=== PATIENT | male | born 1985 | race African-American/Black ===

== ENCOUNTER 2016-12-02 21:48 | Emergency (ER) | payer SELFPAY ==
[~2016-12-02] VITALS: Ht 188 cm; Wt 88.0 kg
[~2016-12-02 21:48] MED LIST: DICL50TA3 PO; EXTR500C PO; IBUP800T23 PO; PRED20 PO
[2016-12-02 21:51] VITALS: BP 132/74; PULSE 82; RESP 16; TEMP 98.1; O2SAT 98
== END 2016-12-02 22:15 | disposition left against medical advice (07) ==
LOC: NEPB 22:10
DX: M54.2 Cervicalgia (principal)
CPT/HCPCS: 99281

== ENCOUNTER 2016-12-07 17:54 | Emergency (ER) | payer SELFPAY ==
[~2016-12-07] VITALS: Ht 188 cm; Wt 88.0 kg
[2016-12-07 18:03] VITALS: BP 130/70; PULSE 84; RESP 15; TEMP 98.2; O2SAT 98
== END 2016-12-07 18:55 | disposition left against medical advice (07) ==
LOC: NED 17:54
DX: M79.605 Pain in left leg (principal); Z53.21 Procedure and treatment not carried out due to patient leaving prior to being seen by health care provider
CPT/HCPCS: 99281

== ENCOUNTER 2016-12-14 11:13 | Emergency (ER) | payer SELFPAY ==
[~2016-12-14] VITALS: Ht 188 cm; Wt 90.0 kg
[2016-12-14 11:17] VITALS: BP 125/70; PULSE 82; RESP 16; TEMP 98.7; O2SAT 98
--- NOTE | 2016-12-14 11:31 | PD ---
HPI Chief Complaint: Injury Time Seen by Provider: 11:31 Travel History International Travel<30 days: No Contact w/Intl Traveler<30days: No Traveled to known affect area: No History of Present Illness HPI 31-year-old male presents to the emergency department for evaluation of 2 separate issues. First, the patient states he has left ankle pain since he dropped a dresser on it yesterday. He denies any other injury. The patient does report a history of chronic left foot pain. He states that he takes anti- inflammatories which do not help. He denies any loss of sensation. Patient also states he has had a dry cough for 2 weeks, "especially after I smoke". He states that when he coughs, he gets a sharp pain in the midsternal chest. Patient is requesting a chest x-ray. Patient denies any fevers or chills. He denies any other complaints at this time. PFSH Past Medical History Asthma: Yes Anxiety: Yes Diminished Hearing: No Respiratory: Yes (ASTHMA) Immunizations Current: Yes Social History Alcohol Use: No Tobacco Use: No Substance Use: Yes (Hx OF MARIJUANA) Allergies-Medications (Allergen,Severity, Reaction): Coded Allergies: Cohen (Verified Allergy, Severe, Itching, 12/14/16) Cultivated Oat Pollen (Verified Allergy, Unknown, Sneezing, 12/14/16) Reported Meds & Prescriptions Reported Meds & Active Scripts Active Ibuprofen 800 Mg Tab 800 Mg PO Q8H PRN Acetaminophen Extra Strength (Acetaminophen) 500 Mg Cap 1,000 Mg PO Q6H PRN Review of Systems Except as stated in HPI: all other systems reviewed are Neg Physical Exam Narrative GENERAL: Well-developed well-nourished male patient, afebrile. SKIN: Warm and dry. HEAD: Normocephalic. Atraumatic. EYES: No scleral icterus. No injection or drainage. NECK: Supple, trachea midline. No JVD or lymphadenopathy. CARDIOVASCULAR: Regular rate and rhythm without murmurs, gallops, or rubs. Left pedal pulse 2+. Capillary refill less than 2 seconds to the digits of the left foot. RESPIRATORY: Breath sounds equal bilaterally. No accessory muscle use. Lungs sounds clear to auscultation. GASTROINTESTINAL: Abdomen soft, non-tender, nondistended. MUSCULOSKELETAL: No cyanosis, or edema. Patient has tenderness to palpation over left medial ankle. No obvious deformity. Chest wall pain is easily reproducible with palpation and coughing. BACK: Nontender without obvious deformity. No CVA tenderness. Data Data Last Documented VS Vital Signs Date Time Temp Pulse Resp B/P Pulse Ox O2 Delivery O2 Flow Rate FiO2 12/14/16 11:17 98.7 82 16 125/70 98 Room Air Orders Chest, Single Ap (12/14/16 ) Ankle, Complete ([id number]) (12/14/16 ) Ibuprofen (Motrin) (12/14/16 11:45) MDM Medical Decision Making Medical Screen Exam Complete: Yes Emergency Medical Condition: Yes Medical Record Reviewed: Yes Differential Diagnosis Ankle sprain versus contusion versus fracture versus muscle strain Narrative Course 31-year-old male presents to the emergency department for evaluation of left ankle pain after he dropped a dresser on yesterday as well as chest wall pain with coughing only. X-ray of the left ankle x-ray of the chest are ordered and pending. X-ray of the left ankle is negative for fracture. Radiologist suggests MRI for more information due to chronicity of pain. The patient can get this outpatient. X-ray of the chest shows no acute disease. Patient is stable for discharge to follow up with his primary care physician or orthopedist. Diagnosis Primary Impression: Contusion of left ankle Qualified Code: S90.02XA - Contusion of left ankle, initial encounter Additional Impression: Cough Referrals: Orthopedist Patient Instructions: Contusion in Adults (ED), General Instructions Additional Instructions: [id number] Tylenol or ibuprofen as needed. Follow-up with your primary care physician or orthopedist. Return to the emergency department for any acute worsening of symptoms. Med/Other Pt SpecificInfo: No Change to Meds Disposition: 01 DISCHARGE HOME Condition: Stable Jossie Barron EDY Dec 14, 2016 11:31
[2016-12-14] MEDS ORDERED: IBUPROFEN 800 MG TAB PO ONE (11:45)
--- NOTE | 2016-12-14 12:16 | RADRPT ---
EXAM DATE/TIME: 12/14/2016 11:48 [facility] COMPARISON: ANKLE LEFT COMPLETE ([id number]), October 26, 2016, 9:11. INDICATIONS : Pain with weight bearing lateral malleous. Droped dress dresser on it 3 weeks ago. MEDICAL HISTORY : None. SURGICAL HISTORY : None. ENCOUNTER: Initial ACUITY: 3 weeks PAIN SCORE: 9/10 LOCATION: Left ankle. FINDINGS: There is minimal soft tissue swelling remaining over the medial and lateral malleolus, significantly improved from the comparison study. I continue see no evidence for fracture. CONCLUSION: Negative for fracture. Given history MRI would offer more information. Jose Luis Horan MD FACR on December 14, 2016 at 12:13 Board Certified Radiologist. This report was verified electronically.
--- NOTE | 2016-12-14 12:27 | RADRPT ---
EXAM DATE/TIME: 12/14/2016 11:46 [facility] COMPARISON: CHEST SINGLE AP, September 16, 2016, 21:24. INDICATIONS : Short of breath with wheezing, Mid sternal chest pains. MEDICAL HISTORY : None. SURGICAL HISTORY : None. ENCOUNTER: Initial ACUITY: 3 days PAIN SCORE: 6/10 LOCATION: Bilateral chest FINDINGS: A single view of the chest demonstrates the lungs to be symmetrically aerated without evidence of mas s, infiltrate or effusion. The cardiomediastinal contours are unremarkable. Osseous structures are intact. CONCLUSION: No acute disease. Shin Villa MD on December 14, 2016 at 12:25 Board Certified Radiologist. This report was verified electronically.
== END 2016-12-14 12:57 | disposition home or self-care (01) ==
LOC: NEPB 11:13
DX: S90.02XA Contusion of left ankle, initial encounter (principal); R05 Cough; W20.8XXA Other cause of strike by thrown, projected or falling object, initial encounter
CPT/HCPCS: 71010; 73610; 99283

== ENCOUNTER 2017-01-19 13:03 | Emergency (ER) | payer SELFPAY ==
[~2017-01-19] VITALS: Ht 188 cm; Wt 134.0 kg
[~2017-01-19 13:03] MED LIST changes: -DICL50TA3 PO; -PRED20 PO
[2017-01-19 13:05] VITALS: BP 134/71; PULSE 17; PULSE 72; RESP 18; TEMP 97.8; O2SAT 99
--- NOTE | 2017-01-19 13:39 | PD ---
HPI Chief Complaint: Injury Time Seen by Provider: 13:36 Travel History International Travel<30 days: No Contact w/Intl Traveler<30days: No Traveled to known affect area: No History of Present Illness HPI 31-year-old male presents to the emergency department for evaluation of bilateral ankle injury, right worse than left, that occurred approximately one hour prior to arrival. Patient states he was moving heavy furniture down stairs when a heavy dresser hit him in his right ankle and pushed his ankle against the stairs. He also states that he hit his left ankle against the stairs. Patient denies any chronic medical problems or taking any medications. He denies any no known allergies to medications. Patient denies any other injury. He denies falling or any headache injury. No LOC. No other complaints. PFSH Past Medical History Asthma: Yes Anxiety: Yes Diminished Hearing: No Respiratory: Yes (ASTHMA) Immunizations Current: Yes Social History Alcohol Use: No Tobacco Use: No Substance Use: Yes (Hx OF MARIJUANA) Allergies-Medications (Allergen,Severity, Reaction): Coded Allergies: Cohen (Verified Allergy, Severe, Itching, 01/19/17) Cultivated Oat Pollen (Verified Allergy, Unknown, Sneezing, 01/19/17) Reported Meds & Prescriptions Reported Meds & Active Scripts Active Ibuprofen 800 Mg Tab 800 Mg PO Q8H PRN Acetaminophen Extra Strength (Acetaminophen) 500 Mg Cap 1,000 Mg PO Q6H PRN Review of Systems Except as stated in HPI: all other systems reviewed are Neg Physical Exam Narrative GENERAL: Well-developed well-nourished male patient, afebrile. SKIN: Warm and dry. HEAD: Normocephalic. Atraumatic. EYES: No scleral icterus. No injection or drainage. NECK: Supple, trachea midline. No JVD or lymphadenopathy. CARDIOVASCULAR: Regular rate and rhythm without murmurs, gallops, or rubs. Bilateral pedal pulses 2+. RESPIRATORY: Breath sounds equal bilaterally. No accessory muscle use. Lungs sounds are clear to auscultation. GASTROINTESTINAL: Abdomen soft, non-tender, nondistended. MUSCULOSKELETAL: No cyanosis, or edema. Patient has tenderness over right and left medial ankles. Negative Pearl's test bilaterally. He can flex and extend bilateral ankles, but with pain. Patient has full sensation to the distal bilateral lower extremities. BACK: Nontender without obvious deformity. No CVA tenderness. Data Data Last Documented VS Vital Signs Date Time Temp Pulse Resp B/P Pulse Ox O2 Delivery O2 Flow Rate FiO2 01/19/17 13:05 97.8 72 18 134/71 99 Orders Ankle, Complete ([id number]) (01/19/17 ) Ankle, Complete ([id number]) (01/19/17 ) Ketorolac Inj (Toradol Inj) (01/19/17 13:45) Ice / Cold Pack PRN (01/19/17 13:35) MDM Medical Decision Making Medical Screen Exam Complete: Yes Emergency Medical Condition: Yes Medical Record Reviewed: Yes Interpretation(s) x-ray left ankle CONCLUSION: Soft tissue swelling without an acute fracture or subluxation of the left ankle. Potential developing osteochondral lesion of the talar dome. x-ray right ankle - CONCLUSION: Soft tissue swelling without acute bony abnormality. Differential Diagnosis Contusion versus fracture versus sprain versus dislocation Narrative Course 31-year-old male presents to the emergency department for evaluation of bilateral ankle pain, right worse than left that occurred approximately one hour ago. X-ray of the right and left ankles are ordered and pending. Ice pack is applied. Patient is given Toradol 60 mg IM for pain. X-ray of the right ankle shows soft tissue swelling without fracture or subluxation. X-ray of the left ankle shows soft tissue swelling without acute bony abnormality. Praveen bandage. He also be given crutches. He is instructed to use these as needed. Patient started to ice and elevate. He is to follow- up with his primary care physician. Patient will be discharged prescription for ibuprofen for pain. Diagnosis Primary Impression: Contusion of left ankle Qualified Code: S90.02XA - Contusion of left ankle, initial encounter Additional Impression: Contusion of right ankle Qualified Code: S90.01XA - Contusion of right ankle, initial encounter Referrals: Primary Care Physician call for appointment Patient Instructions: Contusion in Adults (ED), General Instructions Additional Instructions: Wear Praveen bandage and use crutches as needed. Ice for 20 mins 4-5 times daily. Elevate. Take ibuprofen as instructed as needed with food for pain. Follow-up with your primary care physician. Return to the emergency department for any acute worsening of symptoms. Med/Other Pt SpecificInfo: Prescription(s) given Scripts Ibuprofen 800 Mg [id number] Mg PO TID PRN (PAIN SCALE 1 TO 10) #21 TAB Ref 0 Prov:Jossie Barron 01/19/17 Disposition: 01 DISCHARGE HOME Condition: Stable Jossie Barron Jan 19, 2017 13:39
[2017-01-19] MEDS ORDERED: KETOROLAC TROMETHAMINE 60 MG/2 ML (IM) VIAL IM ONE (13:45)
--- NOTE | 2017-01-19 14:06 | RADRPT ---
EXAM DATE/TIME: 01/19/2017 13:59 [facility] COMPARISON: ANKLE RIGHT COMPLETE ([id number]), October 13, 2016, 15:09. INDICATIONS : Generalized Right Ankle Pain and swelling after fall today. MEDICAL HISTORY : None. SURGICAL HISTORY : None. ENCOUNTER: Initial ACUITY: 1 day PAIN SCORE: 10/10 LOCATION: Right Ankle. FINDINGS: There is soft tissue swelling, mainly medial. No acute fracture demonstrated. No subluxation. No radi opaque foreign body. CONCLUSION: Soft tissue swelling without acute bony abnormality. Kuldeep Martins MD on January 19, 2017 at 14:04 Board Certified Radiologist. This report was verified electronically.
--- NOTE | 2017-01-19 14:08 | RADRPT ---
EXAM DATE/TIME: 01/19/2017 13:59 [facility] COMPARISON: ANKLE LEFT COMPLETE ([id number]), December 14, 2016, 11:48. INDICATIONS : Generalized Left Ankle Pain after fall. MEDICAL HISTORY : None. SURGICAL HISTORY : None. ENCOUNTER: Initial ACUITY: 1 day PAIN SCORE: 10/10 LOCATION: Left Ankle. FINDINGS: No fracture or subluxation seen of the left ankle. There is soft tissue swelling, especially medially . There is focal, subtle subchondral irregularity of the medial corner region of the talar dome. CONCLUSION: Soft tissue swelling without an acute fracture or subluxation of the left ankle. Potential developing osteochondral lesion of the talar dome. Kuldeep Martins MD on January 19, 2017 at 14:06 Board Certified Radiologist. This report was verified electronically.
[2017-01-19] MEDS ORDERED: IBUP800T23 PO (14:15)
== END 2017-01-19 15:11 | disposition home or self-care (01) ==
LOC: NEPB 13:03
DX: S90.01XA Contusion of right ankle, initial encounter (principal); S90.02XA Contusion of left ankle, initial encounter; Z87.09 Personal history of other diseases of the respiratory system; Z86.59 Personal history of other mental and behavioral disorders; W20.8XXA Other cause of strike by thrown, projected or falling object, initial encounter
CPT/HCPCS: 73610; 96372; 99283; E0113; J1885

== ENCOUNTER 2017-01-22 14:08 | Emergency (ER) | payer SELFPAY ==
[~2017-01-22] VITALS: Ht 188 cm; Wt 90.0 kg
[2017-01-22 14:09] VITALS: BP 145/91; PULSE 85; RESP 15; TEMP 98.2; O2SAT 98
--- NOTE | 2017-01-22 14:40 | PD ---
HPI Chief Complaint: Pain: Acute or Chronic Time Seen by Provider: 14:36 Travel History International Travel<30 days: No Contact w/Intl Traveler<30days: No Traveled to known affect area: No History of Present Illness HPI Patient is a 31-year-old male presenting to the EMS for evaluation of left ankle pain. Patient was seen and evaluated in the emergency department on with same complaint. Patient states the ankle isn't getting any better and he cannot put a lot of weight on it without hurting. Patient has no new complaints today. PFSH Past Medical History Asthma: Yes Anxiety: Yes Diminished Hearing: No Respiratory: Yes (ASTHMA) Immunizations Current: Yes Social History Alcohol Use: No Tobacco Use: No Substance Use: Yes (Hx OF MARIJUANA) Allergies-Medications (Allergen,Severity, Reaction): Coded Allergies: Cohen (Verified Allergy, Severe, Itching, 01/19/17) Cultivated Oat Pollen (Verified Allergy, Unknown, Sneezing, 01/19/17) Reported Meds & Prescriptions Reported Meds & Active Scripts Active Ibuprofen 800 Mg Tab 800 Mg PO TID PRN Ibuprofen 800 Mg Tab 800 Mg PO Q8H PRN Acetaminophen Extra Strength (Acetaminophen) 500 Mg Cap 1,000 Mg PO Q6H PRN Review of Systems Except as stated in HPI: all other systems reviewed are Neg Musculoskeletal: Positive: Myalgias, Arthralgias Physical Exam Narrative GENERAL: Well-nourished, well-developed patient. SKIN: Warm and dry. HEAD: Normocephalic. EYES: No scleral icterus. No injection or drainage. NECK: Supple, trachea midline. No JVD or lymphadenopathy. CARDIOVASCULAR: Regular rate and rhythm without murmurs, gallops, or rubs. RESPIRATORY: Breath sounds equal bilaterally. No accessory muscle use. GASTROINTESTINAL: Abdomen soft, non-tender, nondistended. MUSCULOSKELETAL: No cyanosis, or edema. Pes planus noted. No other obvious deformity. No edema. Mild tenderness palpation on the medial aspect of the left ankle. Full range of motion. BACK: Nontender without obvious deformity. No CVA tenderness. Data Data Last Documented VS Vital Signs Date Time Temp Pulse Resp B/P Pulse Ox O2 Delivery O2 Flow Rate FiO2 01/22/17 14:09 98.2 85 15 145/91 98 MDM Medical Decision Making Medical Screen Exam Complete: Yes Emergency Medical Condition: No Medical Record Reviewed: Yes Interpretation(s) Vital Signs Date Time Temp Pulse Resp B/P Pulse Ox O2 Delivery O2 Flow Rate FiO2 01/22/17 14:09 98.2 85 15 145/91 98 Differential Diagnosis Sprain versus strain versus contusion versus pes planus versus other Narrative Course Patient is a 31-year-old male presenting to the emergency department via EMS for evaluation of left ankle pain. Patient was seen and evaluated on 01/19/17 with the same complaint. At that time he had imaging performed of both of his ankles. Imaging was negative for acute fracture abnormality, did show soft tissue swelling. Patient ankles do not appear to be swollen at this time. He was given crutches as well as an Praveen bandage neither of which she has with him. Patient states that the ibuprofen doesn't help. Patient was encouraged to rest, ice, elevate extremity. He was encouraged to follow-up with a primary doctor at the community clinic. There was no new injury or trauma. Patient is neurovascularly intact. A medical screening exam was performed: At the time of evaluation the presenting medical condition was determined not to be of an emergent nature. The patient was given the option of receiving additional care, but declined. Patient was given options for additional community resources from which to obtain care. The Patient Has Been advised to seek medical attention for their presenting complaint. The patient has been advised to return to the ER at any time if an emergent condition develops. Diagnosis Primary Impression: Encounter for medical screening examination Condition: Stable Krissy Peters Jan 22, 2017 14:40
[2017-01-23] MEDS ORDERED: MUCI30TA2 PO (18:53)
== END 2017-01-22 14:45 | disposition left against medical advice (07) ==
LOC: NETRI 14:08
DX: M25.572 Pain in left ankle and joints of left foot (principal); J45.909 Unspecified asthma, uncomplicated
CPT/HCPCS: 99281

== ENCOUNTER 2017-01-23 14:08 | Emergency (ER) | payer SELFPAY ==
[2017-01-23 14:33] VITALS: BP 138/79; PULSE 98; RESP 16; O2SAT 98
[2017-01-23] MEDS ORDERED: MUCI30TA2 PO (18:53)
== END 2017-01-23 15:40 | disposition left against medical advice (07) ==
LOC: NED 14:08
DX: J00 Acute nasopharyngitis [common cold] (principal)
CPT/HCPCS: 99281

== ENCOUNTER 2017-01-23 16:32 | Emergency (ER) | payer SELFPAY ==
[~2017-01-23] VITALS: Ht 188 cm; Wt 88.0 kg
[2017-01-23 16:34] VITALS: BP 133/77; PULSE 100; RESP 20; TEMP 101.5; O2SAT 96
--- NOTE | 2017-01-23 17:47 | PD ---
HPI Chief Complaint: Cold / Flu Symptoms Time Seen by Provider: 17:47 Travel History International Travel<30 days: No Contact w/Intl Traveler<30days: No Traveled to known affect area: No History of Present Illness HPI 31-year-old male with history of asthma presents to the emergency department for evaluation of cough, chest congestion, fever, chills, body aches over the last 3 days. Patient states he developed some nausea with diarrhea today. Reports his cough being productive of a thick yellow sputum. Has not taken any medication to help alleviate his symptoms. Denies any chest pain. Denies any abdominal pain. He does have some epigastric discomfort and denies any headache. He has had subjective fever and chills. He has no other symptoms to report at time. PFSH Past Medical History Asthma: Yes Anxiety: Yes Diminished Hearing: No Respiratory: Yes (BRONCHITIS) Immunizations Current: Yes Social History Alcohol Use: No Tobacco Use: No Substance Use: Yes (Hx OF MARIJUANA) Allergies-Medications (Allergen,Severity, Reaction): Coded Allergies: Cohen (Verified Allergy, Severe, Itching, 01/23/17) Cultivated Oat Pollen (Verified Allergy, Unknown, Sneezing, 01/23/17) Reported Meds & Prescriptions Reported Meds & Active Scripts Active Ibuprofen 800 Mg Tab 800 Mg PO Q8H PRN Review of Systems Except as stated in HPI: all other systems reviewed are Neg Physical Exam Narrative GENERAL: Well-nourished male patient, lying in bed in no acute distress SKIN: Warm and dry. HEAD: Atraumatic. Normocephalic. EYES: Pupils equal and round. No scleral icterus. No injection or drainage. ENT: No nasal bleeding or discharge. Mucous membranes pink and moist. NECK: Trachea midline. No JVD. CARDIOVASCULAR elevated rate and rhythm. No murmur appreciated. RESPIRATORY: No accessory muscle use. Coarse but clear to cough, diminished bases to auscultation. Breath sounds equal bilaterally. GASTROINTESTINAL: Abdomen soft, non-tender, nondistended. Hepatic and splenic margins not palpable. MUSCULOSKELETAL: No obvious deformities. No clubbing. No cyanosis. No edema. NEUROLOGICAL: Awake and alert. No obvious cranial nerve deficits. Motor grossly within normal limits. Normal speech. PSYCHIATRIC: Appropriate mood and affect; insight and judgment normal. Data Data Last Documented VS Vital Signs Date Time Temp Pulse Resp B/P Pulse Ox O2 Delivery O2 Flow Rate FiO2 2/22/17 17:49 98 22 97 Room Air 01/23/17 16:34 101.5 133/77 Orders Complete Blood Count With Diff (01/23/17 17:40) Basic Metabolic Panel (Bmp) (01/23/17 17:40) Lipase (01/23/17 17:40) Influenzae A/B Antigen (01/23/17 17:40) Chest, Single Ap (01/23/17 ) Labs Laboratory Tests Test 01/23/17 18:00 White Blood Count 6.2 TH/MM3 Red Blood Count 5.01 MIL/MM3 Hemoglobin 13.8 GM/DL Hematocrit 41.9 % Mean Corpuscular Volume 83.5 FL Mean Corpuscular Hemoglobin 27.5 PG Mean Corpuscular Hemoglobin 33.0 % Concent Red Cell Distribution Width 14.4 % Platelet Count 327 TH/MM3 Mean Platelet Volume 7.0 FL Neutrophils (%) (Auto) 82.7 % Lymphocytes (%) (Auto) 7.9 % Monocytes (%) (Auto) 8.1 % Eosinophils (%) (Auto) 0.6 % Basophils (%) (Auto) 0.7 % Neutrophils # (Auto) 5.1 TH/MM3 Lymphocytes # (Auto) 0.5 TH/MM3 Monocytes # (Auto) 0.5 TH/MM3 Eosinophils # (Auto) 0.0 TH/MM3 Basophils # (Auto) 0.0 TH/MM3 CBC Comment DIFF FINAL Differential Comment MDM Medical Decision Making Medical Screen Exam Complete: Yes Emergency Medical Condition: Yes Medical Record Reviewed: Yes Differential Diagnosis Pneumonia versus influenza versus bronchitis versus viral syndrome versus sepsis Narrative Course 31-year-old male presents to emergency department for evaluation. Workup was initiated in triage. Once a medical bed becomes available, patient will be transferred and care assumed by that provider. Condition: Stable AngelitaRajaniRachellviola SNOW Jan 23, 2017 17:47
[2017-01-23 18:15] LABS: AUTOMATED NEUTROPHIL # 5.1 TH/MM3 (1.8-7.7); BASOPHIL % 0.7 % (0.0-2.0); EOSINOPHIL % 0.6 % (0.0-4.0); HEMATOCRIT 41.9 % (39.0-51.0); HEMO FLAGS DIFF FINAL; LYMPH % 7.9 % (9.0-44.0); LYMPHOCYTE # 0.5 TH/MM3 (1.0-4.8); MEAN CELL VOLUME 83.5 FL (80.0-100.0); MEAN CORPUSCULAR HEMOGLOBIN 27.5 PG (27.0-34.0); MONO % 8.1 % (0.0-8.0); NEUT % 82.7 % (16.0-70.0); PLATELET COUNT 327 TH/MM3 (150-450); RED BLOOD COUNT 5.01 MIL/MM3 (4.50-5.90); RED CELL DISTRIBUTION WIDTH 14.4 % (11.6-17.2); WHITE BLOOD COUNT 6.2 TH/MM3 (4.0-11.0)
--- NOTE | 2017-01-23 18:15 | RADRPT ---
EXAM DATE/TIME: 01/23/2017 18:00 [facility] COMPARISON: CHEST SINGLE AP, December 14, 2016, 11:46. INDICATIONS : Chest pain and cough. MEDICAL HISTORY : None. SURGICAL HISTORY : None. ENCOUNTER: Initial ACUITY: 3 months PAIN SCORE: 10/10 LOCATION: middle chest. FINDINGS: A single view of the chest demonstrates the lungs to be symmetrically aerated without evidence of mas s, infiltrate or effusion. The cardiomediastinal contours are unremarkable. Osseous structures are intact. CONCLUSION: No evidence of acute cardiopulmonary disease. Kuldeep Martins MD on January 23, 2017 at 18:14 Board Certified Radiologist. This report was verified electronically.
[2017-01-23 18:29] VITALS: BP 153/83; PULSE 93; RESP 18; O2SAT 99
--- NOTE | 2017-01-23 18:35 | PD ---
Data Data Last Documented VS Vital Signs Date Time Temp Pulse Resp B/P Pulse Ox O2 Delivery O2 Flow Rate FiO2 01/23/17 18:29 93 18 153/83 99 Room Air 01/23/17 16:34 101.5 Orders Complete Blood Count With Diff (01/23/17 17:40) Basic Metabolic Panel (Bmp) (01/23/17 17:40) Lipase (01/23/17 17:40) Influenzae A/B Antigen (01/23/17 17:40) Chest, Single Ap (01/23/17 ) Acetaminophen (Tylenol) (01/23/17 18:45) Ondansetron Odt (Zofran Odt) (01/23/17 18:45) Albuterol Hfa Inh (Proair Hfa Inh) (01/23/17 19:00) Labs Laboratory Tests Test 01/23/17 18:00 White Blood Count 6.2 TH/MM3 Red Blood Count 5.01 MIL/MM3 Hemoglobin 13.8 GM/DL Hematocrit 41.9 % Mean Corpuscular Volume 83.5 FL Mean Corpuscular Hemoglobin 27.5 PG Mean Corpuscular Hemoglobin 33.0 % Concent Red Cell Distribution Width 14.4 % Platelet Count 327 TH/MM3 Mean Platelet Volume 7.0 FL Neutrophils (%) (Auto) 82.7 % Lymphocytes (%) (Auto) 7.9 % Monocytes (%) (Auto) 8.1 % Eosinophils (%) (Auto) 0.6 % Basophils (%) (Auto) 0.7 % Neutrophils # (Auto) 5.1 TH/MM3 Lymphocytes # (Auto) 0.5 TH/MM3 Monocytes # (Auto) 0.5 TH/MM3 Eosinophils # (Auto) 0.0 TH/MM3 Basophils # (Auto) 0.0 TH/MM3 CBC Comment DIFF FINAL Differential Comment Sodium Level 134 MEQ/L Potassium Level 3.4 MEQ/L Chloride Level 99 MEQ/L Carbon Dioxide Level 26.5 MEQ/L Anion Gap 9 MEQ/L Blood Urea Nitrogen 6 MG/DL Creatinine 1.30 MG/DL Estimat Glomerular Filtration 79 ML/MIN Rate Random Glucose 89 MG/DL Calcium Level 8.7 MG/DL Lipase 76 U/L [facility] Supervised Visit with KENDRICK: Yes Narrative Course Patient care assumed from Rachell SNOW at 1830. Patient was seen by Rachell in triage as part of provider in triage screening. Patient 31-year-old male presents with cough congestion for the past 3 days. Patient also has noticed generalized body aches and fever chills. Did not get a flu shot this year. Denies any productive sputum. GENERAL: Well-developed well-nourished no apparent distress] SKIN: Warm and dry. HEAD: Atraumatic. Normocephalic. EYES: Pupils equal and round. No scleral icterus. No injection or drainage. ENT: No nasal bleeding or discharge. Mucous membranes pink and moist. NECK: Trachea midline. No JVD. CARDIOVASCULAR: Regular rate and rhythm. No murmur appreciated. RESPIRATORY: No accessory muscle use. Clear to auscultation. Breath sounds equal bilaterally. GASTROINTESTINAL: Abdomen soft, non-tender, nondistended. Hepatic and splenic margins not palpable. MUSCULOSKELETAL: No obvious deformities. No clubbing. No cyanosis. No edema. NEUROLOGICAL: Awake and alert. No obvious cranial nerve deficits. Motor grossly within normal limits. Normal speech. PSYCHIATRIC: Appropriate mood and affect; insight and judgment normal. Last 24 hours Impressions Chest X-Ray 01/23/17 0000 Signed Impressions: Service Date/Time: Monday, January 23, 2017 18:00 - CONCLUSION: No evidence of acute cardiopulmonary disease. Kuldeep Mratins MD Patient is febrile on arrival, Zofran and Tylenol were given in the emergency department. Rapid flu test is positive, chest x-ray reassuring labs are reassuring. Patient does have a history of exercise-induced asthma will be provided an albuterol inhaler. Otherwise discussed symptomatic management of flulike symptoms. Is out of the window for Tamiflu. Discussed return to ED criteria follow-up the primary care physician. Diagnosis Primary Impression: Influenza A Scripts Dextromethorphan-Guaifenesin (Mucinex DM)30-600 Mg Tab1 Tab PO BID PRN (CHEST CONGESTION AND/OR COUGH) #30 TAB Ref 0 Prov:Shin Zheng MD 01/23/17 Disposition: 01 DISCHARGE HOME Condition: Stable Shin Zheng MD Jan 23, 2017 18:35
[2017-01-23 18:40] LABS: BICARBONATE 26.5 MEQ/L (21.0-32.0); POTASSIUM 3.4 MEQ/L (3.5-5.1)
[2017-01-23] MEDS ORDERED: ONDANSETRON ODT 4 MG TAB PO ONE (18:45)
[2017-01-23] MEDS ORDERED: ACETAMINOPHEN 325 MG TAB PO ONE (18:45)
[2017-01-23] MEDS ORDERED: MUCI30TA2 PO (18:53)
[2017-01-23] MEDS ORDERED: ALBUTEROL SULFATE 90 MCG/ACT HFA 8 GM INHALER INH ONE (19:00)
== END 2017-01-23 19:17 | disposition home or self-care (01) ==
LOC: NEPA 16:32
DX: J09.X2 Influenza due to identified novel influenza A virus with other respiratory manifestations (principal)
CPT/HCPCS: 71010; 80048; 83690; 85025; 87804; 99284

== ENCOUNTER 2017-01-24 16:24 | Emergency (ER) | payer SELFPAY ==
[~2017-01-24] VITALS: Ht 188 cm; Wt 90.0 kg
[~2017-01-24 16:24] MED LIST changes: +MUCI30TA2 PO
[2017-01-24 16:25] VITALS: BP 123/72; PULSE 64; RESP 14; TEMP 98.2; O2SAT 99
--- NOTE | 2017-01-24 16:59 | PD ---
HPI Chief Complaint: Pain: Acute or Chronic Time Seen by Provider: 16:57 Travel History International Travel<30 days: No Contact w/Intl Traveler<30days: No Traveled to known affect area: No History of Present Illness HPI Patient comes in complaining of chronic right ankle pain ongoing for a while. Patient states had taken ibuprofen for his symptoms. Patient states he has contacted pain management and is awaiting an appointment with them. Patient denies ever following up with anyone else from his previous ER visits for the same complaint. He denies any new injury, fevers, or change in pain from previous visits. Patient also has concerns over pain in his left index finger that began earlier today while playing basketball with his cousin. Describes pain as achy like in nature without radiation. Patient is concerned he may have fractured his knuckle. Patient denies doing anything for this prior to coming to the emergency department. PFSH Past Medical History Asthma: Yes Anxiety: Yes Diminished Hearing: No Respiratory: Yes (BRONCHITIS) Immunizations Current: Yes Social History Alcohol Use: No Tobacco Use: No Substance Use: Yes (Hx OF MARIJUANA) Allergies-Medications (Allergen,Severity, Reaction): Coded Allergies: Cohen (Verified Allergy, Severe, Itching, 01/24/17) Cultivated Oat Pollen (Verified Allergy, Unknown, Sneezing, 01/24/17) Reported Meds & Prescriptions Reported Meds & Active Scripts Active Mucinex DM (Dextromethorphan-Guaifenesin) 30-600 Mg Tab 1 Tab PO BID PRN Ibuprofen 800 Mg Tab 800 Mg PO Q8H PRN Review of Systems Except as stated in HPI: all other systems reviewed are Neg Physical Exam Narrative GENERAL: Well-developed, well nourished, in no acute distress, and non-ill appearing. SKIN: Warm and dry. HEAD: Atraumatic. Normocephalic. EYES: Pupils equal and round. EOMI. No scleral icterus. No injection or drainage. ENT: No nasal bleeding or discharge. Mucous membranes pink and moist. NECK: Trachea midline. Supple. No nuclear rigidity. CARDIOVASCULAR: Radial and dorsal pulses 2+ intact and equal bilaterally. Capillary refill is 2 seconds. RESPIRATORY: No accessory muscle use. No respiratory distress. MUSCULOSKELETAL: No obvious deformities. No clubbing. No cyanosis. No edema. Full range of motion. Ankle: Neagative anterior draw and Pearl test. Negative Aylin's sign. No laxity noted with passive inversion and eversion of BL ankles. Negative squeeze test. Pulses equal BL distal to injury. Capillary refill less than 2 seconds distal to injury and equal BL. Sensation equal BL 1st web space. FROM of toes distal to injury and equal BL. NV intact distal to injury and equal BL. Dorsal pulses equal BL. Wrist: FROM and equal BL with passive flexion, extension, and pronation/supination. Capillary refill less than 2 seconds distal to injury and equal BL. FROM distal to injury and equal BL. Strength distal to injury equal BL. NV intact distal to injury. Flexion and extension of thumb equal BL. Equal strength and movement with abduction/ adductions of BL fingers. Painter Helper strength equal BL. No tenderness to the anatomical snuffbox. No reproducible tenderness to the right ankle or left index finger. NEUROLOGICAL: Awake and alert. No obvious cranial nerve deficits. Motor grossly within normal limits. Normal speech. PSYCHIATRIC: Appropriate mood and affect; insight and judgment normal. Data Data Last Documented VS Vital Signs Date Time Temp Pulse Resp B/P Pulse Ox O2 Delivery O2 Flow Rate FiO2 01/24/17 16:25 98.2 64 14 123/72 99 Orders Finger ([id number]) (01/24/17 ) Splint Or Brace Apply/Monitor (01/24/17 18:00) [facility] Medical Decision Making Medical Screen Exam Complete: Yes Emergency Medical Condition: Yes Differential Diagnosis Fracture, strain, contusion, chronic pain, other Narrative Course There is no clinical evidence for fracture. There is no clinical evidence to suspect bony injury by exam. Radiographic examination revealed no fracture seen at this time. No obvious ligamental injury or internal derangement is noted at this time. The distal extremity appears neurovascularly intact, without evidence of neurovascular injury nor compartment syndrome. Tendon exam also was intact. The effected limb was splinted. The patient was discharged with sprain care instructions and given warnings for vascular compromise. The patient is to follow up with primary care provider. The patient agrees with plan. Patient in no obvious distress upon re-evaluation. All pertinent Radiology result(s) discussed with patient. Any questions/concerns in reference to patient diagnosis/condition discussed and clarified prior to patient's discharge. Reinforced sheer importance of close follow up with patient's primary physician or primary care clinic. Instructed patient to return to ED immediately, if symptoms return/worsen. Pt showed understanding of above instructions. Further instructions and recommendations were detailed in discharge paperwork. Pt ambulated without difficulty out of ED at discharge. Diagnosis Primary Impression: Injury of left ring finger Qualified Code: S69.92XA - Injury of left ring finger, initial encounter Additional Impression: Chronic pain of right ankle Referrals: [facility] Patient Instructions: Chronic Pain (ED), Finger Sprain (ED), General Instructions Additional Instructions: Follow-up with your primary care physician or primary care clinic in 3-5 days for reevaluation. Use [id number] Tylenol and/or ibuprofen as needed for pain. Follow instructions on the packaging. Return to the emergency department if symptoms get worse. Disposition: 01 DISCHARGE HOME Condition: Stable Jerome Anderson Jan 24, 2017 16:59
--- NOTE | 2017-01-24 17:27 | RADRPT ---
EXAM DATE/TIME: 01/24/2017 17:19 [facility] COMPARISON: No previous studies available for comparison. INDICATIONS : Left Hand 4th digit pain after patient jammed finger while playing basketball. Pain most prevalent a t MCP joint. MEDICAL HISTORY : None. SURGICAL HISTORY : None. ENCOUNTER: Initial ACUITY: 1 day PAIN SCORE: 10/10 LOCATION: Left Hand, 4th Digit. FINDINGS: There appears to be healed fracture of the fourth metacarpal. The fourth phalanx appears intact witho ut evidence of acute injury. Mineralization is normal and no arthritic change is appreciated. CONCLUSION: No acute bony injury Kuldeep Barker MD on January 24, 2017 at 17:24 Board Certified Radiologist. This report was verified electronically.
== END 2017-01-24 18:48 | disposition home or self-care (01) ==
LOC: NEPB 16:24
DX: S69.92XA Unspecified injury of left wrist, hand and finger(s), initial encounter (principal); M25.571 Pain in right ankle and joints of right foot; G89.29 Other chronic pain; Z87.09 Personal history of other diseases of the respiratory system; Z86.59 Personal history of other mental and behavioral disorders; X58.XXXA Exposure to other specified factors, initial encounter; Y93.67 Activity, basketball
CPT/HCPCS: 73140; 99283

== ENCOUNTER 2017-02-16 11:43 | Emergency (ER) | payer SELFPAY ==
[~2017-02-16] VITALS: Ht 188 cm; Wt 100.0 kg
[~2017-02-16 11:43] MED LIST changes: -EXTR500C PO
[2017-02-16 11:46] VITALS: BP 108/72; PULSE 89; TEMP 98.1; O2SAT 98
--- NOTE | 2017-02-16 12:06 | PD ---
HPI . coughing with clear phlegm since last visit Chief Complaint: Cold / Flu Symptoms Time Seen by Provider: 12:02 Travel History International Travel<30 days: No Contact w/Intl Traveler<30days: No Traveled to known affect area: No History of Present Illness HPI 31-year-old male here with complaints of coughing up clear phlegm. Patient says he was diagnosed with flu 2 weeks ago and he is doing much better. He says that he is still coughing and decided to come to the ED for further evaluation. At the time of examination he denies any fever, chills, chest pain , nausea, vomiting, diaphoresis, or shortness of breath. He has no other complaints. History Social History Alcohol Use: No Tobacco Use: No Allergies-Medications (Allergen,Severity, Reaction): Coded Allergies: Cohen (Verified Allergy, Severe, Itching, 01/24/17) Cultivated Oat Pollen (Verified Allergy, Unknown, Sneezing, 01/24/17) Reported Meds & Prescriptions Reported Meds & Active Scripts Active Mucinex DM (Dextromethorphan-Guaifenesin) 30-600 Mg Tab 1 Tab PO BID PRN Ibuprofen 800 Mg Tab 800 Mg PO Q8H PRN Review of Systems General / Constitutional: No: Fever Eyes: No: Visual changes HENT: No: Headaches Cardiovascular: No: Chest Pain or Discomfort Respiratory: Positive: Cough, No: Shortness of Breath Gastrointestinal: No: Abdominal Pain Genitourinary: No: Dysuria Musculoskeletal: No: Pain Skin: No Rash Neurologic: No: Weakness Psychiatric: No: Depression Endocrine: No: Polydipsia Hematologic/Lymphatic: No: Easy Bruising Physical Exam Narrative GENERAL: AAO x 3, no acute distress, Well-nourished, well-developed patient. SKIN: Warm and dry. No visible rashes or bruising. HEAD: Normocephalic and atraumatic. EYES: No scleral icterus. No injection or drainage. EOM intact, PERRLA ENT: No nasal drainage noted. Mucous membranes pink. Airway patent. No posterior falx erythema, edema or exudates. TMs normal bilaterally. NECK: Supple, trachea midline. No JVD. No lymphadenopathy. CARDIOVASCULAR: Regular rate and rhythm without murmurs, gallops, or rubs. RESPIRATORY: Breath sounds equal bilaterally. No accessory muscle use. No rhonchi or rales. GASTROINTESTINAL: Abdomen soft, non-tender, nondistended. EXTREMITIES: No cyanosis or edema. BACK: Nontender without obvious deformity. No CVA tenderness. PSYCH: AAO x 3, normal affect. Data Data Last Documented VS Vital Signs Date Time Temp Pulse Resp B/P Pulse Ox O2 Delivery O2 Flow Rate FiO2 02/16/17 11:46 98.1 89 108/72 98 MDM Medical Screen Exam Complete: Yes Emergency Medical Condition: No Differential Diagnosis Allergic rhinitis, viral sinusitis, less likely pneumonia Narrative Course 31-year-old male here with complaints of coughing up clear phlegm. Patient says he was diagnosed with flu 2 weeks ago and he is doing much better. He says that he is still coughing and decided to come to the ED for further evaluation. At the time of examination he denies any fever, chills, chest pain , nausea, vomiting, diaphoresis, or shortness of breath. He has no other complaints. Patient seen and examined. Has no acute findings on exam. A medical screening exam was performed: At the time of evaluation the presenting medical condition was determined not to be of an emergent nature. The patient was given the option of receiving additional care, but declined. Patient was given options for additional community resources from which to obtain care. The Patient Has Been advised to seek medical attention for their presenting complaint. The patient has been advised to return to the ER at any time if an emergent condition develops. Primary Impression: Encounter for medical screening examination Condition: Stable Alejandra Baumann Feb 16, 2017 12:06
== END 2017-02-16 12:09 | disposition left against medical advice (07) ==
LOC: NEPB 11:43
DX: R05 Cough (principal)
CPT/HCPCS: 99281

== ENCOUNTER 2017-03-10 15:11 | Emergency (ER) | payer SELFPAY ==
[2017-03-10 15:12] VITALS: BP 122/74; PULSE 88; RESP 16; TEMP 98.6; O2SAT 98
== END 2017-03-10 16:03 | disposition left against medical advice (07) ==
LOC: NED 15:11
DX: S99.912A Unspecified injury of left ankle, initial encounter (principal); X58.XXXA Exposure to other specified factors, initial encounter; Z53.21 Procedure and treatment not carried out due to patient leaving prior to being seen by health care provider
CPT/HCPCS: 99281

== ENCOUNTER 2017-03-11 16:18 | Emergency (ER) | payer SELFPAY ==
[2017-03-11 16:19] VITALS: BP 141/61; PULSE 89; RESP 18; TEMP 97.9; O2SAT 99
== END 2017-03-11 17:15 | disposition left against medical advice (07) ==
LOC: NED 16:18
DX: M25.579 Pain in unspecified ankle and joints of unspecified foot (principal)
CPT/HCPCS: 99281

== ENCOUNTER 2017-04-03 16:16 | Emergency (ER) | payer SELFPAY ==
[~2017-04-03] VITALS: Ht 188 cm; Wt 90.0 kg
[2017-04-03 16:18] VITALS: BP 124/76; PULSE 104; RESP 14; TEMP 98.4; O2SAT 98
--- NOTE | 2017-04-03 16:23 | PD ---
Physical Exam Time Seen by Provider: 16:21 Narrative 31 y/o male presents after moving furniture and dropped furniture. Has L ankle pain and L shoulder pain. Vital signs reviewed. Seen at triage desk. Awaiting bed placement. Data Data Last Documented VS Vital Signs Date Time Temp Pulse Resp B/P Pulse Ox O2 Delivery O2 Flow Rate FiO2 04/03/17 16:18 98.4 104 14 124/76 98 MDM Medical Record Reviewed: Yes Supervised Visit with KENDRICK: Joselito Winkler April 03, 2017 16:23
--- NOTE | 2017-04-03 17:16 | PD ---
HPI Chief Complaint: Injury Time Seen by Provider: 17:16 Travel History International Travel<30 days: No Contact w/Intl Traveler<30days: No Traveled to known affect area: No History of Present Illness HPI 31-year-old male sent to the emergency Department with complaint of left ankle pain and swelling and left upper back pain after moving a dresser and the dresser dropping on his left ankle. He injured his back by "bumping" up against the wall behind him when he was trying to move the dresser. Denies paresthesias, loss of sensation to the affected extremity. Denies fever, vomiting. Has not taken any medications or tried any joints to alleviate his symptoms. Back pain is worse with movement and palpation. Allergies to Cohen and cultivated oat pollen. Has no other medical complaints. No modifying factors or associated signs and symptoms. PFSH Past Medical History Asthma: Yes Anxiety: Yes Diminished Hearing: No Respiratory: Yes (asthma) Immunizations Current: Yes Social History Alcohol Use: No Tobacco Use: No Substance Use: Yes (Hx OF MARIJUANA) Allergies-Medications (Allergen,Severity, Reaction): Coded Allergies: Cohen (Verified Allergy, Severe, Itching, 04/03/17) Cultivated Oat Pollen (Verified Allergy, Unknown, Sneezing, 04/03/17) Reported Meds & Prescriptions Reported Meds & Active Scripts Active Ibuprofen 800 Mg Tab 800 Mg PO Q6HR PRN Ibuprofen 800 Mg Tab 800 Mg PO Q8H PRN Review of Systems Except as stated in HPI: all other systems reviewed are Neg Physical Exam Narrative GENERAL: Well-nourished, well-developed male patient, in no acute distress SKIN: Warm and dry. HEAD: Atraumatic. Normocephalic. EYES: Pupils equal and round. No scleral icterus. No injection or drainage. ENT: Mucosa pink and moist. Airway patent. NECK: Trachea midline. CARDIOVASCULAR: Regular rate. RESPIRATORY: No accessory muscle use. GASTROINTESTINAL: Flat. MUSCULOSKELETAL: Left ankle with point tenderness and edema to the lateral and medial malleolar zone; point tenderness to the midfoot zone; no obvious deformities; limited range of motion. Left lower external is supple and nontender 2 pulses. Less than sensory intact and without erythema. No obvious deformities. No clubbing. No cyanosis. No edema. BACK: Reproducible tenderness to the left trapezius muscle over the scapula; no midline point tenderness on palpation of the thoracic spine. NEUROLOGICAL: Awake and alert. Oriented 3. No obvious cranial nerve deficits. Motor grossly within normal limits. Normal speech. PSYCHIATRIC: Appropriate mood and affect; insight and judgment normal. Data Data Last Documented VS Vital Signs Date Time Temp Pulse Resp B/P Pulse Ox O2 Delivery O2 Flow Rate FiO2 04/03/17 16:18 98.4 104 14 124/76 98 Orders Ibuprofen (Motrin) (04/03/17 17:30) Ankle, Complete ([id number]) (04/03/17 17:16) Ice/Cold Pack (04/03/17 17:16) Methocarbamol (Robaxin) (04/03/17 17:30) MDM Medical Decision Making Medical Screen Exam Complete: Yes Emergency Medical Condition: Yes Medical Record Reviewed: Yes Differential Diagnosis Trapezius muscle strain, ankle fracture, ankle sprain Narrative Course 31-year-old male with left ankle injury and left trapezius muscle strain. Left ankle x-ray ordered. Ibuprofen, Robaxin administered in the ER. 1806: Left ankle x-ray with no acute fracture. Ankle stirrup splint and crutches provided for support. Ibuprofen and Robaxin prescribed for home. Instructed patient to follow up with orthopedics if symptoms persist greater than 10-14 days. Patient verbalizes understanding and agreement with treatment plan. Patient is medically cleared and stable for discharge. Discussed reasons to return to the emergency department. Instructed patient to follow up with primary care provider. Patient agrees with treatment plan. The patients vital signs are stable and the patient is stable for outpatient follow-up and treatment. Patient discharged home, stable and in no acute distress. Diagnosis Primary Impression: Left ankle sprain Qualified Code: S93.402A - Sprain of left ankle, unspecified ligament, initial encounter Additional Impression: Strain of left trapezius muscle Qualified Code: S46.812A - Strain of left trapezius muscle, initial encounter Referrals: Primary Care Physician Patient Instructions: Ankle Sprain (ED), Ankle Sprain Exercises (GEN), Ankle Stirrup Splint (ED), Crutch Instructions (ED), General Instructions, Muscle Strain (ED) Departure Forms: Tests/Procedures, Work Release Enter return to work date: April 10, 2017 Additional Instructions: Tylenol/ibuprofen every 6 hours as directed and as needed for pain Robaxin as prescribed and as needed for muscle spasms to the back Rest, ice, compress, and elevate extremity to decrease pain and inflammation Ankle Brace for support Crutches for support Avoid aggravating activity; increase activity as tolerated Follow-up with primary care provider Follow-up with orthopedic as needed Return to the emergency department immediately with worsening symptoms Med/Other Pt SpecificInfo: Prescription(s) given Scripts Methocarbamol (Robaxin)500 Mg Ziu008 Mg PO QID PRN (MUSCLE SPASM) #30 TAB Ref 0 Prov:Margret Pierre 04/03/17 Ibuprofen 800 Mg Quu008 Mg PO Q6HR PRN (PAIN) #30 TAB Ref 0 Prov:Margret Pierre 04/03/17 Disposition: 01 DISCHARGE HOME Condition: Stable Margret Pierre April 03, 2017 17:16
[2017-04-03] MEDS ORDERED: METHOCARBAMOL 500 MG TAB PO ONE (17:30)
[2017-04-03] MEDS ORDERED: IBUPROFEN 800 MG TAB PO ONE (17:30)
--- NOTE | 2017-04-03 18:02 | RADRPT ---
EXAM DATE/TIME: 04/03/2017 17:43 [facility] COMPARISON: No previous studies available for comparison. INDICATIONS : Left ankle pain and swelling after moving furniture and dresser fell on left ankle. MEDICAL HISTORY : None. SURGICAL HISTORY : None. ENCOUNTER: Initial ACUITY: 1 day PAIN SCORE: 8/10 LOCATION: Left Ankle FINDINGS: There is moderate medial soft tissue swelling. No evidence of underlying fracture. Mineralization and alignment are normal. The visualized hindfoot is intact. CONCLUSION: Soft tissue swelling without definite fracture. Kuldeep Barker MD on April 03, 2017 at 17:59 Board Certified Radiologist. This report was verified electronically.
[2017-04-03] MEDS ORDERED: IBUP800T23 PO (18:09)
[2017-04-03] MEDS ORDERED: ROBA500T PO (18:19)
== END 2017-04-03 18:50 | disposition home or self-care (01) ==
LOC: NEPK 16:16
DX: S93.402A Sprain of unspecified ligament of left ankle, initial encounter (principal); S46.812A Strain of other muscles, fascia and tendons at shoulder and upper arm level, left arm, initial encounter; W20.8XXA Other cause of strike by thrown, projected or falling object, initial encounter; Y93.89 Activity, other specified
CPT/HCPCS: 73610; 99283

== ENCOUNTER 2017-05-27 21:46 | Emergency (ER) | payer SELFPAY ==
[~2017-05-27 21:46] MED LIST changes: -MUCI30TA2 PO; +ROBA500T PO
--- NOTE | 2017-05-28 17:13 | EKG ---
Date Performed: 05/27/2017 Time Performed: 22:01:34 PTAGE: 31 years EKG: Sinus rhythm NORMAL ECG PREVIOUS TRACING : 05/02/2016 00.26 Compared to prior tracing no significant change DOCTOR: Roberto Jones Interpretating Date/Time 05/28/2017 17:12:04
== END 2017-05-27 22:11 | disposition left against medical advice (07) ==
LOC: PHED 21:46
DX: Z53.21 Procedure and treatment not carried out due to patient leaving prior to being seen by health care provider (principal)
CPT/HCPCS: 93005; 99281

== ENCOUNTER 2017-06-03 12:35 | Emergency (ER) | payer SELFPAY ==
[~2017-06-03] VITALS: Ht 188 cm; Wt 84.0 kg
[2017-06-03 12:44] VITALS: BP 131/70; PULSE 72; RESP 15; TEMP 98.2; O2SAT 98
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
[2017-06-03] MEDS ORDERED: IBUP-232 PO (14:33)
[2017-06-03] MEDS ORDERED: NON-500T13 PO (14:33)
== END 2017-06-03 15:05 | disposition home or self-care (01) ==
LOC: NEPK 12:35
DX: S80.11XA Contusion of right lower leg, initial encounter (principal); Y04.2XXA Assault by strike against or bumped into by another person, initial encounter
CPT/HCPCS: 73120; 73590; 99283

== ENCOUNTER 2017-06-07 20:34 | Emergency (ER) | payer SELFPAY ==
[~2017-06-07] VITALS: Ht 188 cm; Wt 85.0 kg
[~2017-06-07 20:34] MED LIST changes: +IBUP-232 PO; +NON-500T13 PO
[2017-06-07 20:45] VITALS: BP 135/84; PULSE 95; RESP 20; TEMP 98.6; O2SAT 99
[2017-06-07] MEDS ORDERED: ALBU2TAB4 PO (20:49)
[2017-06-07] MEDS ORDERED: RESP: ALBUTEROL 2.5 MG/IPRATROPIUM 0.5 MG NEB (SCH) INH ONE (21:00)
[2017-06-07] MEDS ORDERED: predniSONE 20 MG TAB PO ONE (21:00)
--- NOTE | 2017-06-07 21:01 | PD ---
HPI Chief Complaint: Cold / Flu Symptoms Time Seen by Provider: 20:59 Travel History International Travel<30 days: No Contact w/Intl Traveler<30days: No Traveled to known affect area: No History of Present Illness HPI Patient comes in complaining of productive cough ongoing for 2 weeks. Patient states been coughing up white phlegm. Patient states symptoms began while smoking a black and mild while drinking vodka. Patient's been using albuterol and Mucinex that helped some, but not getting any better. Patient states the heat makes it worse. Denies any nausea, vomiting chest pain, back pain fevers, sore throat, loss or change in bowel or bladder, or headaches. Denies any known sick contacts. Patient reports he is almost out of his albuterol inhaler. PFSH Past Medical History Asthma: Yes Anxiety: Yes Diminished Hearing: No Respiratory: Yes (asthma) Immunizations Current: Yes Tetanus Vaccination: < 5 Years Influenza Vaccination: No Past Surgical History Surgical History: No Previous Surgery Social History Alcohol Use: Yes Tobacco Use: Yes Substance Use: Yes (Hx OF MARIJUANA) Allergies-Medications (Allergen,Severity, Reaction): Coded Allergies: Cohen (Verified Allergy, Severe, Itching, 06/03/17) Cultivated Oat Pollen (Verified Allergy, Unknown, Sneezing, 06/03/17) Reported Meds & Prescriptions Reported Meds & Active Scripts Active Medrol Dosepak (Methylprednisolone) 4 Mg Dspk 4 Mg PO DIRECTED Per Pharmacist direction Ventolin Hfa 18 GM Inh (Albuterol Sulfate) 90 Mcg/Act Aer 2 Puff INH Q4-6H PRN Reported Albuterol (Albuterol Sulfate) 2 Mg Tab Unknown Dose PO TID Review of Systems Except as stated in HPI: all other systems reviewed are Neg Physical Exam Narrative GENERAL: Well-developed, well nourished, in no acute distress, and non-ill appearing. SKIN: Focused skin assessment warm and dry. HEAD: Atraumatic. Normocephalic. EYES: Pupils equal and round. EOMI. No scleral icterus. No injection or drainage. ENT: No nasal bleeding or discharge. Mucous membranes pink and moist. Tympanic membranes pearly anguiano bilaterally. Posterior pharynx is without exudate. Uvula is midline. No tenderness to facial sinuses to palpation. NECK: Trachea midline. No cervical lymphadenopathy. Supple. No nuclear rigidity. CARDIOVASCULAR: Regular rate and rhythm. No murmur appreciated. RESPIRATORY: No accessory muscle use. No respiratory distress. Scant wheezing throughout. Breath sounds equal bilaterally. Hacking cough noted. MUSCULOSKELETAL: No obvious deformities. No clubbing. No cyanosis. No edema. Full range of motion. NEUROLOGICAL: Awake and alert. No obvious cranial nerve deficits. Motor grossly within normal limits. Normal speech. PSYCHIATRIC: Appropriate mood and affect; insight and judgment normal. Data Data Last Documented VS Vital Signs Date Time Temp Pulse Resp B/P Pulse Ox O2 Delivery O2 Flow Rate FiO2 06/07/17 20:45 98.6 95 20 135/84 99 Orders Albuterol-Ipratropium Neb (Duoneb Neb) (06/07/17 21:00) Prednisone (Deltasone) (06/07/17 21:00) Chest, Single Ap (06/07/17 ) [facility] Medical Decision Making Medical Screen Exam Complete: Yes Emergency Medical Condition: Yes Interpretation(s) Chest x-ray read by the radiologist shows: No acute disease. Differential Diagnosis Pneumonia, asthma exacerbation, cough, other Narrative Course The patient looks great and improved well with Nebulizer and steroid medication. The patient is moving air well and in no distress nor significant dyspnea, and oxygen saturation is within normal limits. There is no clinical or radiological evidence to suggest pneumonia at this time. Diagnosis, plan of care and management were discussed with the patient who agreed with plan and feels better and ready to go home. The patient was instructed to return if worsen, worsening difficulty breathing or wheezing, persistent fever, chest pain or as needed. Patient in no obvious distress upon re-evaluation. All pertinent Radiology result(s) discussed with patient. Patient was asked if they wanted to speak to my attending, which the patient did not wish to do at this time. Any questions/ concerns in reference to patient diagnosis/condition discussed and clarified prior to patient's discharge. Reinforced sheer importance of close follow up with patient's primary physician or primary care clinic. Instructed patient to return to ED immediately, if symptoms return/worsen. Pt showed understanding of above instructions. Further instructions and recommendations were detailed in discharge paperwork. Pt ambulated without difficulty out of ED at discharge. Diagnosis Primary Impression: Asthma exacerbation, mild Referrals: [facility] Patient Instructions: Asthma (ED), General Instructions Additional Instructions: Follow-up with your primary care physician in 3-5 days for reevaluation. Take all medication as prescribed. Return to the emergency department if symptoms get worse. Med/Other Pt SpecificInfo: Prescription(s) given Scripts Methylprednisolone Dosepak (Medrol Dosepak)4 Mg Dspk4 Mg PO DIRECTED #1 DSPK Ref 0 Per Pharmacist direction Prov:Ely Jean Baptiste MD 06/07/17 Albuterol 18 GM Inh (Ventolin Hfa 18 GM Inh)90 Mcg/Act Aer2 Puff INH Q4-6H PRN ( SHORTNESS OF BREATH) #1 INHALER Ref 0 Prov:Ely Jean Baptiste MD 06/07/17 Disposition: 01 DISCHARGE HOME Condition: Stable Jerome Anderson Jun 07, 2017 21:01
--- NOTE | 2017-06-07 21:26 | RADRPT ---
EXAM DATE/TIME: 06/07/2017 21:12 [facility] COMPARISON: CHEST SINGLE AP, January 23, 2017, 18:00. INDICATIONS : Chest pain, shortness of breath, cough, and congestion. MEDICAL HISTORY : Asthma. SURGICAL HISTORY : None. ENCOUNTER: Initial ACUITY: 2 weeks PAIN SCORE: 5/10 LOCATION: Bilateral chest FINDINGS: A single view of the chest demonstrates the lungs to be symmetrically aerated without evidence of mas s, infiltrate or effusion. The cardiomediastinal contours are unremarkable. Osseous structures are intact. CONCLUSION: No acute disease. Jose Luis Horan MD FACR on June 07, 2017 at 21:24 Board Certified Radiologist. This report was verified electronically.
[2017-06-07] MEDS ORDERED: MEDR4PAK PO (21:39)
[2017-06-07] MEDS ORDERED: VENTAER INH (21:39)
== END 2017-06-07 21:49 | disposition home or self-care (01) ==
LOC: NEPD 20:34
DX: J45.21 Mild intermittent asthma with (acute) exacerbation (principal); R05 Cough; J45.909 Unspecified asthma, uncomplicated; F41.9 Anxiety disorder, unspecified; Z79.51 Long term (current) use of inhaled steroids; Z79.899 Other long term (current) drug therapy; Z72.0 Tobacco use
CPT/HCPCS: 71010; 94664; 99284; J7512

== ENCOUNTER 2017-07-11 19:51 | Emergency (ER) | payer SELFPAY ==
[~2017-07-11] VITALS: Ht 188 cm; Wt 85.0 kg
[~2017-07-11 19:51] MED LIST changes: +ALBU2TAB4 PO; -IBUP-232 PO; -IBUP800T23 PO; +MEDR4PAK PO; -NON-500T13 PO; -ROBA500T PO; +VENTAER INH
[2017-07-11 19:53] VITALS: BP 131/81; PULSE 105; RESP 12; TEMP 98.8; O2SAT 98
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
[2017-07-11] MEDS ORDERED: DICL75TA PO (20:39)
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
[2017-07-11] MEDS ORDERED: IBUPROFEN 800 MG TAB PO ONE (20:45)
== END 2017-07-11 21:00 | disposition home or self-care (01) ==
LOC: NEPK 19:51
DX: G89.29 Other chronic pain (principal); M25.572 Pain in left ankle and joints of left foot
CPT/HCPCS: 73610; 99283

== ENCOUNTER 2017-07-12 15:32 | Emergency (ER) | payer SELFPAY ==
[~2017-07-12] VITALS: Ht 188 cm; Wt 90.9 kg
[~2017-07-12 15:32] MED LIST changes: -ALBU2TAB4 PO; +DICL75TA PO; -MEDR4PAK PO
[2017-07-12 15:34] VITALS: BP 137/73; PULSE 81; RESP 12; TEMP 98.9; O2SAT 99
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
== END 2017-07-12 16:44 | disposition home or self-care (01) ==
LOC: NEPK 15:32
DX: M25.572 Pain in left ankle and joints of left foot (principal); G89.29 Other chronic pain; M79.89 Other specified soft tissue disorders; J45.909 Unspecified asthma, uncomplicated; F41.9 Anxiety disorder, unspecified; Z72.0 Tobacco use
CPT/HCPCS: 73610; 99283

== ENCOUNTER 2017-07-22 19:56 | Emergency (ER) | payer SELFPAY ==
[~2017-07-22] VITALS: Ht 182.9 cm; Wt 80.0 kg
[2017-07-22 20:00] VITALS: BP 126/71; PULSE 89; RESP 16; TEMP 99.5; O2SAT 100
--- NOTE | 2017-07-22 20:24 | PD ---
Physical Exam Date Seen by Provider: Jul 22, 2017 Time Seen by Provider: 20:22 Narrative 31 y/o male with c/o Left ankle pain after "snapping it today at work". also C/ o upper back pain. Pain 7/10. No numbness or tingling. X-ray ordered. Ibuprofen ordered. Vital Signs reviewed. Patient is Stable and awaiting Bed Placement. Data Data Last Documented VS Vital Signs Date Time Temp Pulse Resp B/P (MAP) Pulse Ox O2 Delivery O2 Flow Rate FiO2 07/22/17 20:00 99.5 89 16 126/71 (89) 100 MDM Medical Record Reviewed: Yes Supervised Visit with KENDRICK: Yes Scripts No Active Prescriptions or Reported Meds Condition: Stable Alexei De Santiago Jul 22, 2017 20:24
[2017-07-22] MEDS ORDERED: IBUPROFEN 800 MG TAB PO ONE (20:30)
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
[2017-07-22 21:18] VITALS: BP 133/69; PULSE 91; RESP 16; O2SAT 100
--- NOTE | 2017-07-22 21:21 | PD ---
HPI Chief Complaint: Injury Time Seen by Provider: 21:20 Travel History International Travel<30 days: No Contact w/Intl Traveler<30days: No Traveled to known affect area: No History of Present Illness HPI 31-year-old male presents to the emergency department for evaluation of left ankle pain that started up proximally 3 hours ago. He states he was moving furniture downstairs when he inverted his left ankle. Patient has been ambulatory since. States he has swelling to the medial aspect of the ankle. He states he injured it previously as well. However, he does not know what kind of injury he had. No fevers or chills. No chest pain or shortness of breath. He has no other injury. He reports no chronic medical problems and takes no prescribed medications. [facility] Past Medical History Asthma: Yes Anxiety: Yes Diminished Hearing: No Respiratory: Yes (asthma) Immunizations Current: Yes Social History Alcohol Use: Yes Tobacco Use: Yes Substance Use: Yes (Hx OF MARIJUANA) Allergies-Medications (Allergen,Severity, Reaction): Coded Allergies: engle (Unverified Allergy, Severe, Itching, 07/22/17) grass pollen (Unverified Allergy, Unknown, Sneezing, 07/22/17) Reported Meds & Prescriptions Reported Meds & Active Scripts Active No Active Prescriptions or Reported Medications Review of Systems Except as stated in HPI: all other systems reviewed are Neg Physical Exam Narrative GENERAL: Well-nourished, well-developed male patient, afebrile. SKIN: Focused skin assessment warm/dry. HEAD: Normocephalic. Atraumatic. EYES: No scleral icterus. No injection or drainage. NECK: Supple, trachea midline. No JVD or lymphadenopathy. CARDIOVASCULAR: Regular rate and rhythm without murmurs, gallops, or rubs. Left pedal pulse is 2+. Capillary refill is less than 2 seconds to the digits of the left foot. RESPIRATORY: Breath sounds equal bilaterally. No accessory muscle use. Lungs sounds clear to auscultation. GASTROINTESTINAL: Abdomen soft, non-tender, nondistended. MUSCULOSKELETAL: No cyanosis, or edema. Patient has tenderness over left medial ankle with swelling noted. Negative Pearl's test. BACK: Nontender without obvious deformity. No CVA tenderness. Data Data Last Documented VS Vital Signs Date Time Temp Pulse Resp B/P (MAP) Pulse Ox O2 Delivery O2 Flow Rate FiO2 07/22/17 21:18 91 16 133/69 (90) 100 Room Air 07/22/17 20:00 99.5 Orders Orders Ankle, Complete ([id number]) (07/22/17 20:24) Ice/Cold Pack (07/22/17 20:24) Ibuprofen (Motrin) (07/22/17 20:30) MDM Medical Decision Making Medical Screen Exam Complete: Yes Emergency Medical Condition: Yes Medical Record Reviewed: Yes Interpretation(s) CONCLUSION: Soft tissue swelling without evidence of acute bony abnormality or significant arthropathy. Differential Diagnosis Sprain versus fracture versus dislocation Narrative Course 31-year-old male presents to the emergency department for evaluation of left ankle injury that occurred today. X-ray left ankle shows no bony injury. Patient is provided Praveen bandage and crutches. He'll be discharged with a prescription for ibuprofen. He is instructed to ice and elevate and follow-up with orthopedist if pain continues or worsens. He verbalizes agreement and understanding. Diagnosis Primary Impression: Left ankle sprain Qualified Codes: S93.402A - Sprain of unspecified ligament of left ankle, initial encounter Referrals: Orthopedist as needed Patient Instructions: Ankle Sprain (ED), General Instructions Additional Instructions: Elevate. Ice for 20 minutes 4-5 times daily. Take ibuprofen as instructed as needed with food for pain. Use crutches and wear Praveen bandage as needed for support. Follow-up with orthopedist if pain continues or worsens. Return to the emergency department for any acute worsening of symptoms. Med/Other Pt SpecificInfo: Prescription(s) given Scripts Ibuprofen (Ibuprofen) 600 Mg Tab 600 MG PO TID Y for PAIN SCALE 1 TO 10, #21 TAB 0 Refills Prov: Rad Barronarielle SNOW 07/22/17 Disposition: 01 DISCHARGE HOME Condition: Stable Anderson,Jossie SNOW Jul 22, 2017 21:21
[2017-07-22] MEDS ORDERED: IBUP-232 PO (21:28)
== END 2017-07-22 21:54 | disposition home or self-care (01) ==
LOC: NEPD 19:56
DX: S93.402A Sprain of unspecified ligament of left ankle, initial encounter (principal); J45.909 Unspecified asthma, uncomplicated; Z72.0 Tobacco use; X50.1XXA Overexertion from prolonged static or awkward postures, initial encounter
CPT/HCPCS: 73610; 99283; E0113

== ENCOUNTER 2018-02-18 13:25 | Emergency (ER) | payer SELFPAY ==
[~2018-02-18 13:25] MED LIST changes: -DICL75TA PO; +IBUP-232 PO; -VENTAER INH
[2018-02-18 13:54] VITALS: BP 147/76; PULSE 89; RESP 16; TEMP 99; O2SAT 100
--- NOTE | 2018-02-18 14:23 | RADRPT ---
EXAM DATE/TIME: 02/18/2018 14:10 [facility] COMPARISON: CHEST SINGLE AP, June 07, 2017, 21:12. INDICATIONS : Complains of chest pain and pain across shoulders. [facility] MEDICAL HISTORY : None. SURGICAL HISTORY : None. ENCOUNTER: Initial ACUITY: 2 months PAIN SCORE: 10/10 LOCATION: Bilateral chest FINDINGS: PA and lateral views of the chest demonstrate the lungs to be symmetrically aerated without evidence of mass, infiltrate or effusion. The cardiomediastinal contours are unremarkable. Osseous structure s are intact. CONCLUSION: No acute disease. No significant change has occurred. Jeffrey Harrell MD on February 18, 2018 at 14:20 Board Certified Radiologist. This report was verified electronically.
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
== END 2018-02-18 17:11 | disposition left against medical advice (07) ==
LOC: NED 13:25
DX: R07.89 Other chest pain (principal)
CPT/HCPCS: 71046; 99283